=== PATIENT | male | born 1990 | race Caucasian/White ===

== ENCOUNTER 2019-09-06 11:55 | Emergency (ER) | payer OTHER ==
--- NOTE | 2019-09-06 12:26 | ED ---
Throat Pain/Nasal Congestion - HPI Summary HPI Summary: Patient is a 28-year-old male who presents emergency department for sore throat , fever and difficulty swallowing times several days. Denies past medical history. Has occasionally been taking Tylenol for pain and fever. Patient denies cough, shortness of breath, headache, abdominal pain, vomiting, diarrhea. Patient denies known sick contacts. Symptoms are mild in severity. Swallowing and eating makes symptoms worse. Nothing makes symptoms better. - History of Current Complaint Chief Complaint: EDThroatPain Time Seen by Provider: 09/06/19 12:24 Hx Obtained From: Patient - Allergies/Home Medications Allergies/Adverse Reactions: Allergies Allergy/AdvReac Type Severity Reaction Status Date / Time No Known Allergies Allergy Verified 09/06/19 13:29 Home Medications: Home Medications NK [No Home Medications Reported] 09/06/19 [History Confirmed 09/06/19] PMH/Surg Hx/FS Hx/Imm Hx Previously Healthy: Yes Infectious Disease History: No Infectious Disease History: Denies: Traveled Outside the [place] in Last 30 Days - Family History Known Family History: Positive: Non-Contributory - Social History Occupation: Student Lives: Alone Review of Systems Positive: Fever, Chills Eyes: Negative Positive: Sore Throat Cardiovascular: Negative Respiratory: Negative Gastrointestinal: Negative Musculoskeletal: Negative Skin: Negative Neurological/Mental Status: Negative All Other Systems Reviewed And Are Negative: Yes Physical Exam Triage Information Reviewed: Yes Vital Signs On Initial Exam: Initial Vitals Temp Pulse Resp BP Pulse Ox 97.7 F 93 20 136/87 98 09/06/19 12:07 09/06/19 12:07 09/06/19 12:07 09/06/19 12:07 09/06/19 12:07 Vital Signs Reviewed: Yes Appearance: Positive: Well-Appearing - Pt. sitting up in bed in NAD. Skin: Positive: Warm, Dry Head/Face: Positive: Normal Head/Face Inspection Eyes: Positive: Normal, EOMI, DOUG ENT: Positive: Other - Bilateral moderate tonsilar edema. Excudate on the left. Uvula midline. No trismus. Mild muffled voice. No pulling of secretions. Neck: Positive: Supple, Enlarged Nodes @ - bilateral cervical.. Negative: Nuchal Rigidity Neurological: Positive: Normal, CN Intact II-III Psychiatric: Positive: Affect/Mood Appropriate Procedures - Sedation Patient Received Moderate/Deep Sedation with Procedure: No Diagnostics - Vital Signs Vital Signs Temp Pulse Resp BP Pulse Ox 09/06/19 12:07 97.7 F 93 20 136/87 98 - Laboratory Result Diagrams: 09/06/19 13:19 09/06/19 13:19 Lab Statement: Any lab studies that have been ordered have been reviewed, and results considered in the medical decision making process. EENT Course/Dx - Course Course Of Treatment: Pt. with sore throat and fever. No signs of tonsilar abscess. Did obtain COVID given fever and sore throat. Pt. given iv fluids, decadron and toradol. CBC and CMP unremarkable. Negative strep. [place] positive. On re-exam pt. feeling a bit better. Tolerating PO fluids. Results discussed. Discussed no contact sports/activities. Advised to follow isolation until covid results are back. Motrin 600mg every 6 hours. To increase fluids. Will f.u with larry in 2-3 days. WIll return to er if sxs change or worsen. Pt. understands and agrees with plan. - Differential Diagnoses Differential Diagnoses: Periodontic Abscess, Tonsilitis - Diagnoses Provider Diagnoses: Mononucleosis Discharge ED - Sign-Out/Discharge Documenting (check all that apply): Patient Departure - Discharge Plan Condition: Improved Disposition: HOME Patient Education Materials: Mononucleosis (ED) Forms: COVID-19 Tested & Isolation Referrals: [facility] - Larry HUBER [Primary Care Provider] - Additional Instructions: Follow up with [facility] in 2-3 days for recheck Increase fluids with water, gatorade, pedialyte Take 600mg ibuprofen every 6 hours for pain and swelling Health department will follow up with you regarding COVID test results--follow isolation precautions until testing results are back Return to ER if symptoms change or worsen - Billing Disposition and Condition Condition: IMPROVED Disposition: Home
[2019-09-06 12:31] LABS: Rapid Strep Molecular Negative (Negative)
[2019-09-06] MEDS ORDERED: NS 0.9% 1000 ML** 1,000 ML IV ONE (12:52)
[2019-09-06] MEDS ORDERED: Ketorolac INJ* 30 MG/ML 1 ML VIAL IV PUSH ONE (12:53)
[2019-09-06] MEDS ORDERED: Dexamethasone IV* 4 MG/ML 1 ML (4 MG) IV SLOW PU ONE (12:53)
[2019-09-06 13:41] LABS: Hematocrit 45 % (42-52); Hemoglobin 15.2 g/dL (14.0-18.0); Mean Corpuscular HGB Conc 34 g/dL (31-36); Mean Corpuscular Hemoglobin 31 pg (27-31); Mean Corpuscular Volume 90 fL (80-94); Mean Platelet Volume 8.1 fL (7.4-10.4); Platelet Count 170 10^3/uL (150-450); Red Blood Count 4.93 10^6 /uL (4.18-5.48); Red Cell Distribution Width 13 % (10-15); White Blood Count 9.6 10^3/uL (3.5-10.8)
[2019-09-06 14:06] LABS: ALT < 3 U/L (7-52); AST 30 U/L (13-39); Albumin 4.3 g/dL (3.2-5.2); Albumin/Globulin Ratio 1.2 (1-3); Alkaline Phosphatase 78 U/L (34-104); Anion Gap 7 mmol/L (2-11); BUN/Creatinine Ratio 18.5 (8-20); Blood Urea Nitrogen 15 mg/dL (6-24); C Reactive Protein 51.36 mg/L (<8.01); CO2 Carbon Dioxide 29 mmol/L (22-32); Calcium 9.7 mg/dL (8.6-10.3); Chloride 100 mmol/L (101-111); EGFR African American 138.3 (>60); EGFR Non-African American 114.3 (>60); Globulin 3.5 g/dL (2-4); Glucose 103 mg/dL (70-100); Potassium 4.3 mmol/L (3.5-5.0); Sodium 136 mmol/L (135-145); Total Protein 7.8 g/dL (6.4-8.9)
[2019-09-06 14:58] VITALS: BP 129/88
== END 2019-09-06 14:58 | disposition home or self-care (01) ==
LOC: ED 11:55
DX: B27.90 Infectious mononucleosis, unspecified without complication (principal); J02.9 Acute pharyngitis, unspecified; R50.9 Fever, unspecified
CPT/HCPCS: 36415; 80053; 85025; 85060; 86140; 86308; 87635; 87651; 96361; 96374; 96375; 99283; J1100; J1885